=== PATIENT | male | born 1945 | race Caucasian/White ===

== ENCOUNTER → 2023-07-23 08:43 | Outpatient (REF) | payer OTHER, SELFPAY | LOC: DHVS 08:43 | PROVIDERS: ATTENDING PHYSICIAN Surgery Vascular Surgery; FAMILY PHYSICIAN Internal Medicine | DX: I73.9 Peripheral vascular disease, unspecified (principal) | CPT/HCPCS: 93922; 93925 ==

== ENCOUNTER → 2024-01-31 10:59 | Outpatient (REF) | payer OTHER, SELFPAY | LOC: RAD 10:59 | PROVIDERS: ATTENDING PHYSICIAN Surgery Vascular Surgery; FAMILY PHYSICIAN Internal Medicine | DX: I73.9 Peripheral vascular disease, unspecified (principal) | CPT/HCPCS: 93922 ==

== ENCOUNTER → 2024-05-29 09:25 | Outpatient (REF) | payer OTHER, SELFPAY | LOC: RAD 09:25 | PROVIDERS: ATTENDING PHYSICIAN Specialist; FAMILY PHYSICIAN Internal Medicine | DX: Z95.0 Presence of cardiac pacemaker (principal) | CPT/HCPCS: 71046 ==

== ENCOUNTER → 2024-06-17 13:27 | Outpatient (REF) | payer OTHER, SELFPAY | LOC: MRI 13:27 | PROVIDERS: ATTENDING PHYSICIAN Specialist; FAMILY PHYSICIAN Internal Medicine | DX: R26.0 Ataxic gait (principal); G40.109 Localization-related (focal) (partial) symptomatic epilepsy and epileptic syndromes with simple partial seizures, not intractable, without status epilepticus | CPT/HCPCS: 70551 ==

== ENCOUNTER → 2024-08-10 11:27 | Outpatient (REF) | payer OTHER, SELFPAY | LOC: RAD 11:27 | PROVIDERS: ATTENDING PHYSICIAN Registered Nurse; FAMILY PHYSICIAN Internal Medicine | DX: I73.9 Peripheral vascular disease, unspecified (principal) | CPT/HCPCS: 93922 ==

== ENCOUNTER → 2025-02-08 12:52 | Outpatient (REF) | payer OTHER, SELFPAY | LOC: RCS 12:52 | PROVIDERS: ATTENDING PHYSICIAN Internal Medicine Cardiovascular Disease; FAMILY PHYSICIAN Internal Medicine | DX: Z95.0 Presence of cardiac pacemaker (principal); I49.5 Sick sinus syndrome; I73.9 Peripheral vascular disease, unspecified; I25.10 Atherosclerotic heart disease of native coronary artery without angina pectoris | CPT/HCPCS: 93306 ==

== ENCOUNTER 2025-02-26 06:31 | Day surgery (SDC) | payer OTHER, SELFPAY ==
[2025-02-10 13:06] VITALS: BMI 27.6
[2025-02-26] VITALS (7 sets, daily range): BP systolic 123–185; BP diastolic 63–91
[2025-02-26 07:11] LABS: Hematocrit 38.8 % (39.0-52.0); Hemoglobin 12.9 g/dL (13.0-18.0); Mean Corp Hgb Conc. 33.2 g/dL (33.0-37.0); Mean Corpuscular Volume 85.5 fL (80.0-94.0); Platelet Count 200 10^3/uL (130-400); Red Cell Dist. Width 14.2 % (11.5-14.5)
[2025-02-26 07:46] LABS: Glucose - Point of Care 142 mg/dl (70-99)
[2025-02-26 08:02] LABS: Blood Urea Nitrogen 11 mg/dl (9-20); Calcium 8.9 mg/dl (8.4-10.2); Carbon Dioxide 28 mmol/L (22-30); Chloride 105 mmol/L (98-107); Estimated Creatinine Clearance 53 ml/min; Glucose 140 mg/dl (70-99); Potassium 4.2 mmol/L (3.5-5.1); Sodium 139 mmol/L (135-145); eGFR > 60.00
--- NOTE | 2025-02-26 09:11 | ITS.CL.PACE ---
Boot Trimmer - Pacemaker Implant
Pacemaker Implant
Procedure Report:
Date of Procedure: February 26, 2025.
Procedures: Dual chamber pacemaker generator change. Pacemaker pulse generator explantation and pacemaker pulse generator implantation.
Indication: Pacemaker at [facility] from natural battery depletion. The pacemaker is for the treatment of nonreversible symptomatic bradycardia due to sinus node dysfunction.
Performing physician: Maksim Finnegan MD, [facility].
Implant: Pacemaker Pulse Generator: [employer]; Model# L331; Serial# [id number].
Explanted Pacemaker Pulse Generator (Implanted 11/02/2015): [employer]; Model# L311; Serial# [id number].
Retained RA Lead (Implanted 11/02/2015): [employer]: Model# 7740; Serial# [id number].
Retained RV Lead (Implanted 11/02/2015): [employer]; Model# 7732; Serial# [id number].
Technique: A time out was performed. The procedure site was identified. The patient was anesthetized by the anesthesia service. Preoperative cefazolin was administered before the skin incision. The patient was prepped and draped in the usual
fashion. Local anesthetic was applied to the left prepectoral subcutaneous tissue. A 3 inch incision was made over the pulse generator. The capsule was entered with Bovie cautery. The old pacemaker pulse generator was explanted. No Bovie cautery was
applied to the lead system. The leads were appropriately attached to the new device. The pocket was irrigated with antibiotic solution. Hemostasis was excellent. The device and leads were placed in the pocket. The incision was closed in three layers
with absorbable suture. Steri-strips and a silver impregnated dressing were applied. The estimated blood loss was 2 mL. There were no complications. No fluoroscopy.
Lead Analysis:
RA lead: P: 4.9 mV; Threshold: 0.7 V @ 0.4 ms; Impedance: 573 ohms.
RV lead: R: 11.5 mV; Threshold: 1.2 V @ 0.4 ms; Impedance: 643 ohms.
Final Programming: DDDR 60 - 130 bpm.
Conclusion: Uncomplicated [employer] pacemaker change. The pacemaker system is MRI conditional.
Recommendation: Routine post pacemaker care.
cc: Andrey De Leon MD and Sharmila Jeong MD.
== END 2025-02-26 10:05 | disposition home or self-care (01) ==
LOC: CATH 06:31
PROVIDERS: ATTENDING PHYSICIAN Internal Medicine Cardiovascular Disease; FAMILY PHYSICIAN Internal Medicine; OTHER PHYSICIAN Internal Medicine Cardiovascular Disease
DX: Z45.010 Encounter for checking and testing of cardiac pacemaker pulse generator [battery] (principal); I49.5 Sick sinus syndrome; E11.51 Type 2 diabetes mellitus with diabetic peripheral angiopathy without gangrene; E78.5 Hyperlipidemia, unspecified; G40.909 Epilepsy, unspecified, not intractable, without status epilepticus; G47.33 Obstructive sleep apnea (adult) (pediatric); G90.01 Carotid sinus syncope; H91.90 Unspecified hearing loss, unspecified ear; I10 Essential (primary) hypertension; I25.10 Atherosclerotic heart disease of native coronary artery without angina pectoris; I45.10 Unspecified right bundle-branch block; I70.202 Unspecified atherosclerosis of native arteries of extremities, left leg; Z87.891 Personal history of nicotine dependence; Z79.82 Long term (current) use of aspirin; Z86.73 Personal history of transient ischemic attack (TIA), and cerebral infarction without residual deficits; Z86.0100 Personal history of colon polyps, unspecified; Z79.899 Other long term (current) drug therapy; Z79.84 Long term (current) use of oral hypoglycemic drugs; K21.9 Gastro-esophageal reflux disease without esophagitis; F32.A Depression, unspecified; R42 Dizziness and giddiness; Z95.1 Presence of aortocoronary bypass graft; Z88.8 Allergy status to other drugs, medicaments and biological substances; Z88.1 Allergy status to other antibiotic agents; Z90.49 Acquired absence of other specified parts of digestive tract
CPT/HCPCS: 33228; 80048; 82962; 85027; 93005; C1785

== ENCOUNTER 2025-02-27 09:50 | Emergency (ER) | payer OTHER, SELFPAY ==
[2025-02-27 09:53] VITALS: BP 170/90
--- NOTE | 2025-02-27 10:38 | ED.GENMED ---
History of Present Illness
General
Chief Complaint: Post Operative Problem(s)
Source: patient
Exam Limitations: none
Time Seen by Provider: 02/27/25 10:05
Nursing documentation reviewed up to this point in time: agreed with
History of Present Illness
History of Present Illness:
Patient is an 79-year-old male status post dual-chamber pacemaker generator charge/pace maker pulse generator implantation yesterday presents to the ER for evaluation. He reports he did have some bleeding after pacemaker insertion and prior to
discharge they put a pressure dressing off. When he went to remove the pressure dressing today it was peeling his pacemaker dressing off and he came to the ER.
He denies any bleeding. No other complaints.
Past History
Past History
ED Past Medical History: CAD, GERD, HTN, Hypercholesterolemia, NIDDM, Psychiatric (Depression, eczema, cataracts, hearing impairment, colon polyps, peripheral vascular disease) and Other (PAD)
ED Past Surgical History: Cholecystectomy and Other (Quadruple bypass 1999, appendectomy 1962,)
Social History
Tobacco: Non-smoker
Personal:
Living: with family
Employment: Retired
Phy Exam
General Physical Exam
General Presentation: no apparent distress
General age: appears stated age
General Skin: warm and dry
General Habitus: normal
General Mental: alert
General Hydration: appears well hydrated
Cardiovascular Exam
Cardiovascular Exam: regular rate/rhythm, no murmur and normal peripheral pulses
Pulmonary Exam
Pulmonary Exam: lungs clear, no respiratory distress and other (left chest wall with dressing in place over PM site )
Neurological Exam
Neurological Exam: alert and oriented x3
Musculoskeletal Exam
Musculoskeletal Exam: full ROM
Skin Exam
Skin Exam: normal color and warm/dry
Psychiatric Exam
Psychiatric Exam: normal mood/affect
Course
Vital Signs
Initial and Last Documented VS:
Initial Vital Signs
Temp Pulse Resp BP Pulse Ox
97.5 F 78 16 170/90 97
02/27/25 09:53 02/27/25 09:53 02/27/25 09:53 02/27/25 09:53 02/27/25 09:53
Last Documented Vital Signs
Temp Pulse Resp BP Pulse Ox
97.5 F 78 16 170/90 97
02/27/25 09:53 02/27/25 09:53 02/27/25 09:53 02/27/25 09:53 02/27/25 10:40
MDM/Problems Addressed
Differential Diagnosis Includes:
Not limited to complications from dressing
MDM/Problems Addressed:
As documented patient presented to the ER for problems with his dressing over his pacemaker site. He had bleeding prior to leaving yesterday and they appl a pressure dressing. When he attempted to remove the pressure dressing it was peeling off
the dressing covering the pacemaker. Cardiology Nurse practitioner, did see the patient and all of the dressings were removed. There is no bleeding. His pacemaker site looks well without any evidence of infection. He had mild surrounding
redness from the adhesive component of the initial dressing. A new Aquacel dressing was applied. Patient has appointment on Saturday for dressing removal.
*Pulse Oximetry
SaO2: 97
Oxygen Mode of Delivery: Room air
Patient hypoxic: no
*Critical Care Note
Total Time (30-74mins, 75-104mins- exclusive of procedures): Not Applicable
Data Reviewed
Review of Other/Old Records Reveals: Operative Reports
Source: patient
ED Attending Note
-
Portions of this chart may have been created with voice recognition software.� Occasional wrong word or��sound alike� substitutions may have occurred due to the inherent limitations of voice recognition software.
Discharge Plan
Departure
Patient Disposition: Home (Routine Discharge)
Date of Disposition: 02/27/25
Time of Disposition: 12:15
Patient with high blood pressure during this ER visit?: Yes
Condition: Fair
Covid-19: Not Applicable
Discharge Problem:
post operative problem
Instructions: BLOOD PRESSURE
Prescriptions:
No Action
aspirin 81 MG tablet,delayed release (DR/EC)
81 mg PO DAILY
metformin 1,000 MG tablet
1,000 mg PO BID
lisinopril 2.5 MG tablet
2.5 mg PO DAILY
metoprolol succinate 25 mg Tablet Extended Release 24 Hr
25 mg PO DAILY
lamotrigine 100 mg Tablet
100 mg PO BID
diphenhydramine HCl [Benadryl] 25 mg Capsule
25 mg PO DAILY PRN (Reason: alerrgy Symptoms)
clopidogrel 75 mg Tablet
75 mg PO DAILY Qty: 90 0RF
pantoprazole 40 mg Tablet,Delayed Release (Dr/Ec)
40 mg PO DAILY
ibuprofen 200 mg Tablet
400 mg PO Q6H PRN (Reason: pain)
atorvastatin 80 mg Tablet
80 mg PO QPM
glipizide 5 mg Tablet
5 mg PO BID
ferrous sulfate 325 mg (65 mg iron) Tablet
130 mg PO DAILY
cephalexin 500 mg capsule
500 mg PO Q8H Qty: 3 0RF
Rx Instructions:
First dose due at 2pm today
Referrals:
Andrey De Leon MD [Family Provider, Internal Medicine]
Activity Restrictions/Additional Instructions:
Please keep dressing in place until you are seen by cardiology as scheduled Saturday. Return if any worsening of symptoms
Interventions
Interventions:
*Risk Screen - Suicide Last Done: 02/27/25 09:54
*Neglect/Abuse Screening Last Done: 02/27/25 09:54
Discharge Date and Time
Print Language: [place]
[2025-02-27 12:35] VITALS: BP 169/68
== END 2025-02-27 12:39 | disposition home or self-care (01) ==
LOC: EMR 09:50
PROVIDERS: EMERGENCY PHYSICIAN Emergency Medicine; FAMILY PHYSICIAN Internal Medicine
DX: Z45.018 Encounter for adjustment and management of other part of cardiac pacemaker (principal); E11.51 Type 2 diabetes mellitus with diabetic peripheral angiopathy without gangrene; I25.810 Atherosclerosis of coronary artery bypass graft(s) without angina pectoris; I10 Essential (primary) hypertension; E78.00 Pure hypercholesterolemia, unspecified; F32.A Depression, unspecified; H91.90 Unspecified hearing loss, unspecified ear; L30.9 Dermatitis, unspecified; K21.9 Gastro-esophageal reflux disease without esophagitis; Z79.84 Long term (current) use of oral hypoglycemic drugs; Z79.82 Long term (current) use of aspirin; Z79.02 Long term (current) use of antithrombotics/antiplatelets; Z95.1 Presence of aortocoronary bypass graft
CPT/HCPCS: 99281